=== PATIENT | female | born 1955 | race African-American/Black ===

== ENCOUNTER → 2016-08-18 | Outpatient (CLI) | payer BC ==
[2014-08-26 12:35] VITALS: BP 144/62
[~2016-08-18] MED LIST: AMLO1TAB95 PO; ASPI-482 PO; DOXA4TAB3 PO; FURO20TA3 PO; INSU100V5 IJ; IRON18TA PO; METO50TA2 PO
--- NOTE | 2016-08-18 15:28 | RAD ---
Chest, 2 views, 08/18/2016: History: Dyspnea The heart is mildly enlarged. The pulmonary vascularity is normal. No pulmonary infiltrates are seen. There is no evidence of pleural fluid. Mild spurring is present in the spine. IMPRESSION: 1. Mild cardiomegaly. 2. No acute abnormality is detected.
== END | disposition home or self-care (01) ==
LOC: RAD 14:42
PROVIDERS: ATTEND Internal Medicine Hematology & Oncology
DX: D64.9 Anemia, unspecified (principal); R06.00 Dyspnea, unspecified; I51.7 Cardiomegaly
CPT/HCPCS: 71020

== ENCOUNTER → 2016-09-07 | Outpatient (CLI) | payer BC ==
[2014-08-26 12:35] VITALS: BP 144/62
--- NOTE | 2016-09-14 20:23 | SLEEP ---
DATE OF STUDY: 09/07/2016 ATTENDING PHYSICIAN: Unknown. The patient underwent home sleep study performed by [facility]. The total recording time was 811 minutes. The patient is 39 years old who weighs 195 pounds and has a BMI of 34.5. During the night study, the patient had 5 central apneas, 112 obstructive apneas, 1 ____ apnea and 4 hypopneas. The patient's apnea hypopnea index was 9 per hour with a supine index of 120 per hour. Review of nocturnal oximetry study revealed an average oxygen saturation 95% with the lowest of 83%. Five minutes were spent in oxygen saturation of less than 90%. Mean heart rate was 75 beats per minute. IMPRESSION: 1. Mild sleep apnea-hypopnea syndrome with worsening during supine sleep. 2. Mild nocturnal hypoxia secondary to obstructive sleep apnea. RECOMMENDATIONS: 1. The patient would benefit from an in-lab CPAP titration study. 2. Alternate treatment options include use of an oral appliance as recommended by the dentist. 3. Weight loss is advised. 4. Avoid GEAR TESTER depressants. 5. Caution regarding driving until symptoms of sleep apnea have resolved with the above recommendations. BRENDAN CONTI MD DR: [email or web address]/daniele JOB#: [id number] / [id number] FITO
== END | disposition home or self-care (01) ==
LOC: RT 08:16
PROVIDERS: ATTEND Internal Medicine Critical Care Medicine
DX: G47.33 Obstructive sleep apnea (adult) (pediatric) (principal)
CPT/HCPCS: G0399